=== PATIENT | female | born 1975 ===

== ENCOUNTER 2024-08-16 12:53 | Emergency (ER) | payer BC, OTHER ==
[~2024-08-16] VITALS: Ht 152.4 cm; Wt 61.2 kg
[~2024-08-16 12:53] MED LIST: Z LOESTRIN MT; Z.0.LEXAPRO20 MG MT
[2024-08-16 14:05] LABS: CORONAVIRUS COVID-19 AG NEGATIVE (NEGATIVE); INFLUENZA A AG NEGATIVE (NEGATIVE); INFLUENZA B AG NEGATIVE (NEGATIVE)
[2024-08-16] MEDS ORDERED: SINGULAIR10 MG PO (14:41)
[2024-08-16 15:07] VITALS: PULSE 89; RESP 18; TEMP 98.7; O2SAT 96
[2024-08-16] MEDS ORDERED: ALBUTEROL1.25 MG/3 NEB (17:43)
== END 2024-08-16 15:09 | disposition home or self-care (01) ==
LOC: ER 13:46
DX: R05.9 Cough, unspecified (principal); J40 Bronchitis, not specified as acute or chronic; Z11.52 Encounter for screening for COVID-19
CPT/HCPCS: 71046; 99283

== ENCOUNTER 2024-08-25 21:39 | Emergency (ER) | payer BC ==
[~2024-08-25] VITALS: Ht 152.4 cm; Wt 61.2 kg
[~2024-08-25 21:39] MED LIST changes: +ALBUTEROL1.25 MG/3 NEB; +SINGULAIR10 MG PO
[2024-08-25 22:14] VITALS: TEMP 98.3
[2024-08-25 22:38] LABS: BASOPHILS # (AUTO) 0.1 (0.0-0.1); BASOPHILS % 0.5 % (0.0-1.0); EOSINOPHILS # (AUTO) 0.5 (0.0-0.4); EOSINOPHILS % 4.5 % (0.0-6.0); HEMATOCRIT 38.5 % (34.2-44.1); HEMOGLOBIN 12.2 g/dL (12.0-16.0); LYMPHOCYTES # (AUTO) 3.2 (1.0-3.2); LYMPHOCYTES % 27.5 % (18.0-39.1); MEAN CORPUSCULAR HEMOGLOBIN 32.5 pg (28-32); MEAN CORPUSCULAR HGB CONC 31.7 g/dL (31-35); MEAN CORPUSCULAR VOLUME 102.7 fL (81-99); MONOCYTES # (AUTO) 0.8 (0.2-0.8); MONOCYTES % 7.2 % (4.4-11.3); PLATELET COUNT 334 x10e3/uL (140-360); RED BLOOD COUNT 3.75 x10e6/uL (3.6-5.1); RED CELL DISTRIBUTION WIDTH 12.9 % (11.7-14.4); WHITE BLOOD COUNT 11.58 x10e3/uL (4.8-10.8)
[2024-08-25 22:59] LABS: ALBUMIN 3.6 g/dL (3.5-5.0); ALBUMIN/GLOBULIN RATIO 1.2 (0.8-2.0); BILIRUBIN,TOTAL 0.4 mg/dL (0.2-1.2); CALCIUM 9.6 mg/dL (8.4-10.2); CREATININE, SERUM 0.74 mg/dL (0.57-1.11); INFLUENZA A AG NEGATIVE (NEGATIVE); INFLUENZA B AG NEGATIVE (NEGATIVE); LIPASE 60 U/L (8-78); STREPTOCOCCUS GRP A ANTIGEN NEGATIVE (NEGATIVE); TOTAL PROTEIN 6.7 g/dL (6.5-8.1)
[2024-08-25 23:00] LABS: CORONAVIRUS COVID-19 AG NEGATIVE (NEGATIVE)
[2024-08-25 23:16] LABS: TROPONIN I < 0.001 ng/mL (0-0.300)
[2024-08-26 00:55] VITALS: PULSE 86; RESP 15
[2024-08-26] MEDS ORDERED: MEDROL4 M2 PO (01:20)
[2024-08-26] MEDS ORDERED: PANTOPRAZOLE SO40 MG PO (01:20)
[2024-08-26] MEDS ORDERED: AZITHROMYCIN250 MG PO (01:20)
[2024-08-26 01:40] VITALS: BP 115/67; PULSE 81; RESP 16; TEMP 98.2; O2SAT 99
== END 2024-08-26 01:43 | disposition home or self-care (01) ==
LOC: ER 22:22
DX: R05.9 Cough, unspecified (principal); J40 Bronchitis, not specified as acute or chronic; K21.9 Gastro-esophageal reflux disease without esophagitis; F32.A Depression, unspecified; F17.210 Nicotine dependence, cigarettes, uncomplicated
CPT/HCPCS: 36415; 71045; 80053; 83518; 83690; 83880; 84484; 85025; 87070; 87428; 99284; J2470; 93005